=== PATIENT | female | born 1970 | race Caucasian/White ===

== ENCOUNTER → 2020-07-08 | Outpatient (CLI) | payer OTHER ==
[~2020-07-08] MED LIST: ESTR1TAB15 PO; NONE PER PT; PROGESTERONE
[2020-07-08 12:05] LABS: ALANINE AMINOTRANSFERASE 33 U/L (12-78); ALBUMIN 3.6 g/dL (3.4-5.0); ANION GAP 5 mmol/L (5-15); CALCIUM 8.9 mg/dL (8.5-10.1); CHLORIDE 107 mmol/L (98-107)
[2020-07-08 12:07] LABS: BASOPHILS % (AUTO) 1 % (0-1); EOSINOPHILS % (AUTO) 1 % (1-7); LYMPHOCYTES % (AUTO) 29 % (22-44); MEAN CORPUSCULAR HEMOGLOBIN 29.4 pg (27.0-34.8); MEAN CORPUSCULAR HGB CONC 32.7 g/dL (32.4-35.8); MONOCYTES % (AUTO) 9 % (2-9); NEUTROPHILS % (AUTO) 61 % (42-75); PLATELET COUNT 276 x10^3/uL (130-400); RED BLOOD COUNT 4.16 x10^6/uL (3.82-5.3); RED CELL DISTRIBUTION WIDTH 15.6 % (9.6-15.2)
[2020-07-08 12:09] LABS: ALKALINE PHOSPHATASE 80 U/L (45-117); BILIRUBIN,TOTAL 0.4 mg/dL (0.2-1.0); MD NO; TOTAL PROTEIN 7.2 g/dL (6.4-8.2)
[2020-07-08 12:31] LABS: MICROSCOPIC NOT IND
== END | disposition home or self-care (01) ==
LOC: STAR 11:05
PROVIDERS: ATTEND Obstetrics & Gynecology
DX: Z01.812 Encounter for preprocedural laboratory examination (principal); Z20.822 Contact with and (suspected) exposure to COVID-19; N84.0 Polyp of corpus uteri
CPT/HCPCS: 80053; 81003; 84702; 85025; 87635

== ENCOUNTER 2020-07-12 05:40 | Day surgery (SDC) | payer OTHER ==
[~2020-07-12] VITALS: Ht 157.5 cm; Wt 69.1 kg
[2020-07-12] MEDS ORDERED: CHLORHEXIDINE 15 ML UDC MM STA (06:08)
[2020-07-12] MEDS ORDERED: LACTATED RINGERS 1,000 ML IV SCH (06:30)
[2020-07-12 06:31] LABS: HCG UR SG 1.026 (1.003-1.030)
[2020-07-12] MEDS ORDERED: MIDAZOLAM 1 MG/ML, 2ML ONE (07:07)
[2020-07-12] MEDS ORDERED: PROPOFOL 50 ML ONE (07:07)
[2020-07-12] MEDS ORDERED: FENTANYL PF 100 MCG/2ML ONE (07:07)
[2020-07-12] MEDS ORDERED: SILVER NITRATE STICK TP ONE (07:12)
[2020-07-12] MEDS ORDERED: BUPIVACAINE/PF 0.25% ONE (07:12)
[2020-07-12] MEDS ORDERED: EPINEPHRINE 1 MG/ML, 1ML ONE (07:12)
[2020-07-12] MEDS ORDERED: ONDANSETRON 2MG/ML, 2ML IVPush PRN (07:30)
[2020-07-12] MEDS ORDERED: LABETALOL 5MG/ML, 20ML IV PRN (07:30)
[2020-07-12] MEDS ORDERED: HYDROmorphone 1 MG/ML, 1ML INJ IVPush PRN (07:30)
[2020-07-12] MEDS ORDERED: FENTANYL PF 100 MCG/2ML IV PRN (07:30)
[2020-07-12] MEDS ORDERED: OXYcodone 5 MG/5 ML ORAL.SOL UDC PO PRN (07:30)
[2020-07-12] MEDS ORDERED: PROMETHAZINE 25 MG/ML, 1ML IVPush PRN (07:30)
[2020-07-12] MEDS ORDERED: hydrALAzine 20 MG/ML, 1ML IV PRN (07:30)
[2020-07-12] MEDS ORDERED: EPHEDRINE 50 MG/ML, 1ML IVPush PRN (07:30)
[2020-07-12] MEDS ORDERED: ACETAMINOPHEN 325 MG TABLET PO PRN (07:30)
[2020-07-12] MEDS ORDERED: ONDANSETRON 2MG/ML, 2ML ONE (07:59)
[2020-07-12] MEDS ORDERED: DEXAMETHASONE 4 MG/ML, 5ML ONE (07:59)
[2020-07-12] MEDS ORDERED: KETOROLAC 30 MG/1 ML ONE (07:59)
[2020-07-12] MEDS ORDERED: LIDOCAINE-MPF 2% ,5ML ONE (07:59)
[2020-07-12] MEDS ORDERED: PROPOFOL 10 MG/ML, 20ML ONE ×2 (07:59→08:00)
[2020-07-12] MEDS ORDERED: BUPIVACAINE/PF-EPI 0.25% 1:200K INFIL ONE (08:11)
== END 2020-07-12 10:35 | disposition home or self-care (01) ==
LOC: OUT 05:40
PROVIDERS: ATTEND Obstetrics & Gynecology
DX: N92.0 Excessive and frequent menstruation with regular cycle (principal); N84.0 Polyp of corpus uteri; Z79.899 Other long term (current) drug therapy; Z88.5 Allergy status to narcotic agent
CPT/HCPCS: 36415; 58563; 81025; 86850; 86900; 88305; J0171; J1100; J1885; J2250; J2405; J2704; J3010; J7120

== ENCOUNTER → 2020-11-29 | Outpatient (CLI) | payer OTHER ==
[2020-11-29 11:56] LABS: MICROSCOPIC NOT IND
[2020-11-29 11:58] LABS: BASOPHILS % (AUTO) 1 % (0-1); EOSINOPHILS % (AUTO) 1 % (1-7); LYMPHOCYTES % (AUTO) 20 % (22-44); MEAN CORPUSCULAR HGB CONC 34.5 g/dL (32.4-35.8); MEAN PLATELET VOLUME 8.4 fL (7.4-10.4); MONOCYTES % (AUTO) 8 % (2-9); NEUTROPHILS % (AUTO) 71 % (42-75); PLATELET COUNT 265 x10^3/uL (130-400); RED BLOOD COUNT 4.36 x10^6/uL (3.82-5.3); RED CELL DISTRIBUTION WIDTH 15.8 % (9.6-15.2)
[2020-11-29 12:08] LABS: ALBUMIN 3.6 g/dL (3.4-5.0); ANION GAP 7 mmol/L (5-15); CALCIUM 9.2 mg/dL (8.5-10.1); CHLORIDE 106 mmol/L (98-107)
[2020-11-29 12:16] LABS: ALANINE AMINOTRANSFERASE 31 U/L (12-78); ALKALINE PHOSPHATASE 75 U/L (45-117); BILIRUBIN,TOTAL 0.4 mg/dL (0.2-1.0); CREATININE 0.91 mg/dL (0.55-1.02); TOTAL PROTEIN 7.4 g/dL (6.4-8.2)
== END | disposition home or self-care (01) ==
LOC: STAR 10:29
PROVIDERS: ATTEND Obstetrics & Gynecology
DX: Z01.818 Encounter for other preprocedural examination (principal); N92.0 Excessive and frequent menstruation with regular cycle; N93.8 Other specified abnormal uterine and vaginal bleeding; Z20.822 Contact with and (suspected) exposure to COVID-19
CPT/HCPCS: 36415; 71046; 80053; 81003; 84702; 85025; 93005; U0003; U0005

== ENCOUNTER 2020-12-05 05:41 | Day surgery (SDC) | payer OTHER ==
[~2020-12-05] VITALS: Ht 157.5 cm; Wt 70.7 kg
[2020-12-05] MEDS ORDERED: MULT-449 PO (06:22)
[2020-12-05 06:23] VITALS: BP 123/83
[2020-12-05] MEDS ORDERED: LACTATED RINGERS 1,000 ML IV SCH (06:30)
[2020-12-05] MEDS ORDERED: CHLORHEXIDINE 15 ML UDC PO ONE (06:30)
[2020-12-05] MEDS ORDERED: BUPIVACAINE/PF 0.25% ONE (06:48)
[2020-12-05] MEDS ORDERED: FLUORESCEIN SODIUM 500 MG/5 ML ONE (06:48)
[2020-12-05] MEDS ORDERED: EPINEPHRINE 1 MG/ML, 1ML ONE (06:48)
[2020-12-05] MEDS ORDERED: ONDANSETRON 2MG/ML, 2ML IVPush PRN (07:00)
[2020-12-05] MEDS ORDERED: METOCLOPRAMIDE 5 MG/ML, 2ML IVPush PRN (07:00)
[2020-12-05] MEDS ORDERED: EPHEDRINE 50 MG/ML, 1ML IVPush PRN (07:00)
[2020-12-05] MEDS ORDERED: hydrALAzine 20 MG/ML, 1ML IV PRN (07:00)
[2020-12-05] MEDS ORDERED: DIAZEPAM 5 MG/ML, 2ML IVPush PRN (07:00)
[2020-12-05] MEDS ORDERED: OXYcodone 5 MG/5 ML ORAL.SOL UDC PO PRN (07:00)
[2020-12-05] MEDS ORDERED: ACETAMINOPHEN 325 MG TABLET PO PRN (07:00)
[2020-12-05] MEDS ORDERED: MEPERIDINE/PF 25MG/0.5ML IVPush PRN (07:00)
[2020-12-05] MEDS ORDERED: HYDROmorphone 1 MG/ML, 1ML INJ IVPush PRN (07:00)
[2020-12-05] MEDS ORDERED: KETOROLAC 30 MG/1 ML IVPush PRN (07:00)
[2020-12-05] MEDS ORDERED: HALOPERIDOL 5 MG/ML IV PRN (07:00)
[2020-12-05] MEDS ORDERED: DIPHENHYDRAMINE 50 MG/ML, 1ML IVPush PRN (07:00)
[2020-12-05] MEDS ORDERED: METOPROLOL 1 MG/ML, 5ML IV PRN (07:00)
[2020-12-05] MEDS ORDERED: PROMETHAZINE 25 MG/ML, 1ML IVPush PRN (07:00)
[2020-12-05] MEDS ORDERED: LABETALOL 5MG/ML, 20ML IV PRN (07:00)
[2020-12-05] MEDS ORDERED: FENTANYL PF 100 MCG/2ML IV PRN (07:00)
[2020-12-05] MEDS ORDERED: FENTANYL PF 100 MCG/2ML ONE ×2 (07:14→10:02)
[2020-12-05] MEDS ORDERED: HYDROmorphone 1 MG/ML, 1ML INJ ONE (07:14)
[2020-12-05] MEDS ORDERED: MIDAZOLAM 1 MG/ML, 2ML ONE (07:14)
[2020-12-05 07:17] LABS: HCG UR SG 1.023 (1.003-1.030)
[2020-12-05] MEDS ORDERED: CEFOTETAN 2 GM ONE (07:41)
[2020-12-05] MEDS ORDERED: DEXAMETHASONE 4 MG/ML, 1ML ONE (07:41)
[2020-12-05] MEDS ORDERED: ROCURONIUM 10 MG/ML,10ML ONE (07:41)
[2020-12-05] MEDS ORDERED: ONDANSETRON 2MG/ML, 2ML ONE (07:41)
[2020-12-05] MEDS ORDERED: NEOSTIGMINE 1 MG/ML, 10ML ONE (07:41)
[2020-12-05] MEDS ORDERED: PROPOFOL 10 MG/ML, 20ML ONE (07:41)
[2020-12-05] MEDS ORDERED: GLYCOPYRROLATE 0.2MG/1ML, 5ML ONE (07:41)
[2020-12-05] MEDS ORDERED: BUPIVACAINE/PF-EPI 0.25% 1:200K INFIL ONE (08:19)
[2020-12-05] MEDS ORDERED: OXYcodone 5 MG/5 ML ORAL.SOL UDC ONE (09:47)
[2020-12-05] MEDS ORDERED: KETOROLAC 30 MG/1 ML ONE (09:47)
[2020-12-05] MEDS ORDERED: MEPERIDINE/PF 25MG/ML,1ML ONE (09:52)
[2020-12-05] MEDS ORDERED: TRAM1TAB6 PO ×2 (09:59→10:06)
[2020-12-05] MEDS ORDERED: IBUP-1222 PO (09:59)
[2020-12-05] MEDS ORDERED: ACETAMINOPHEN 650 MG/20.3 ML UDC ONE (10:01)
[2020-12-05] MEDS ORDERED: SCOPOLAMINE 1MG PATCH TD ONE ×2 (14:35→15:00)
== END 2020-12-05 14:50 | disposition home or self-care (01) ==
LOC: OUT 05:41
PROVIDERS: ATTEND Obstetrics & Gynecology
DX: N92.0 Excessive and frequent menstruation with regular cycle (principal); N93.8 Other specified abnormal uterine and vaginal bleeding; N84.0 Polyp of corpus uteri; N72 Inflammatory disease of cervix uteri; N87.9 Dysplasia of cervix uteri, unspecified; N88.8 Other specified noninflammatory disorders of cervix uteri; Z79.899 Other long term (current) drug therapy; Z88.5 Allergy status to narcotic agent; Z98.890 Other specified postprocedural states
CPT/HCPCS: 36415; 58552; 81025; 86850; 86900; 88307; J0171; J1100; J1170; J1885; J2175; J2250; J2405; J2704; J2710; J2765; J3010